=== PATIENT | male | born 1965 | race Caucasian/White ===

== ENCOUNTER 2024-07-07 23:56 | Inpatient (IN) ==
[2024-07-07] MEDS ORDERED: IOPAMIDOL 100 ML BOTTLE IV ONE (23:57)
[2024-07-08] MEDS: fentaNYL 100 MCG/2 ML VIAL IV PRN (01:01)
[2024-07-08] MEDS: 0.9 % SODIUM CHLORIDE 500 ML IV ONE (01:01)
[2024-07-08] MEDS: ONDANSETRON 4 MG/2 ML VIAL IV ONE ×2 (01:02→04:41)
[2024-07-08 01:13] LABS: Basophils # (Auto) 0.05 K/mcL (0.00-0.30); Basophils % (Auto) 0.4 % (0.0-2.0); Eosinophils # (Auto) 0.15 K/mcL (0.00-0.70); Eosinophils % (Auto) 1.3 % (0.0-7.0); Hematocrit 44.4 % (40.1-51.0); Hemoglobin 13.4 g/dL (13.7-17.5); Lymphocytes % (Auto) 15.9 % (15.5-49.0); Mean Cell Volume 71.3 fL (80.0-100.0); Mean Corpuscular HGB Conc 30.2 g/dL (31.0-36.0); Mean Platelet Volume 9.4 fL (8.8-12.5); Monocytes # (Auto) 0.83 K/mcL (0.10-0.90); Neutrophils % (Auto) 75.1 % (38.0-78.0); Platelet Count 291 K/mcL (140-440); RBC 6.23 M/mcL (4.63-6.08); Red Cell Distribution Width 18.2 % (11.5-14.5); WBC 11.9 K/mcL (4.5-11.0)
[2024-07-08 01:30] LABS: ALT/SGPT 20 U/L (<40); AST/SGOT 20 U/L (<40); Albumin 4.5 gm/dL (3.2-5.2); Albumin/Globulin Ratio 1.7 (1.0-2.3); Alkaline Phosphatase 70 U/L (39-117); Bilirubin,Total 0.6 mg/dL (0.1-1.0); Blood Urea Nitrogen 18 mg/dL (6-20); Calcium 9.9 mg/dL (8.6-10.4); Carbon Dioxide 25 mmol/L (22-30); Chloride 101 mmol/L (96-108); Globulin 2.7 gm/dL (2.2-3.7); Glomerular Filtration Rate 65; Glucose 120 mg/dL (70-105); Potassium 4.3 mmol/L (3.3-5.1); Sodium 140 mmol/L (133-145)
[2024-07-08] MEDS: HYDROmorphone 1 MG/ML SYRINGE IV PRN (02:05)
[2024-07-08] MEDS: METOCLOPRAMIDE 10 MG/2 ML VIAL IV ONE (03:40)
[2024-07-08] MEDS: BENZOCAINE ONE 20% 1 SPRAY TOPICAL (03:54)
[2024-07-08] MEDS: 0.9 % SODIUM CHLORIDE 1,000 ML IV SCH (04:04)
[2024-07-08] MEDS: ONDANSETRON 4 MG/2 ML VIAL IV PRN (07:35)
[2024-07-08] MEDS: BENZOCAINE ONE 20% 1 SPRAY TOPICAL PRN (11:29)
[2024-07-08] MEDS ORDERED: METOCLOPRAMIDE 10 MG/2 ML VIAL IV SCH (13:45)
[2024-07-08] MEDS: 0.9 % SODIUM CHLORIDE 10 ML SYRINGE IV SCH (14:02)
[2024-07-08] MEDS: PYRIDOSTIGMINE BROMIDE 10 MG/2 ML AMPUL IV SCH ×2 (14:02→14:07)
[2024-07-08] MEDS: PANTOPRAZOLE 40 MG VIAL IV SCH (17:15)
[2024-07-09] MEDS: LORazepam 2 MG/ML VIAL IV PRN (02:41)
[2024-07-09] MEDS: POLYETHYLENE GLYCOL 3350 17 GM PACKET PO SCH (16:03)
[2024-07-10 06:45] LABS: Basophils # (Auto) 0.04 K/mcL (0.00-0.30); Basophils % (Auto) 0.5 % (0.0-2.0); Eosinophils # (Auto) 0.17 K/mcL (0.00-0.70); Eosinophils % (Auto) 2.3 % (0.0-7.0); Hematocrit 36.7 % (40.1-51.0); Hemoglobin 11.1 g/dL (13.7-17.5); Lymphocytes # (Auto) 1.23 K/mcL (1.50-4.80); Lymphocytes % (Auto) 16.4 % (15.5-49.0); Mean Cell Volume 72.1 fL (80.0-100.0); Mean Corpuscular HGB Conc 30.2 g/dL (31.0-36.0); Mean Platelet Volume 9.3 fL (8.8-12.5); Monocytes # (Auto) 0.57 K/mcL (0.10-0.90); Monocytes % (Auto) 7.6 % (1.0-12.0); Neutrophils % (Auto) 72.4 % (38.0-78.0); Platelet Count 211 K/mcL (140-440); RBC 5.09 M/mcL (4.63-6.08); Red Cell Distribution Width 17.4 % (11.5-14.5); WBC 7.5 K/mcL (4.5-11.0)
[2024-07-10 06:47] LABS: ALT/SGPT 11 U/L (<40); AST/SGOT 15 U/L (<40); Albumin 3.6 gm/dL (3.2-5.2); Albumin/Globulin Ratio 1.6 (1.0-2.3); Alkaline Phosphatase 59 U/L (39-117); Bilirubin,Direct 0.3 mg/dL (<0.3); Bilirubin,Total 0.7 mg/dL (0.1-1.0); Blood Urea Nitrogen 10 mg/dL (6-20); Calcium 8.3 mg/dL (8.6-10.4); Carbon Dioxide 24 mmol/L (22-30); Chloride 106 mmol/L (96-108); Globulin 2.2 gm/dL (2.2-3.7); Glomerular Filtration Rate 93; Glucose 104 mg/dL (70-105); Lactate Dehydrogenase 149 U/L (135-225); Phosphorous 1.6 mg/dL (2.5-4.5); Potassium 3.8 mmol/L (3.3-5.1); Sodium 139 mmol/L (133-145); Triglycerides 96 mg/dL (<150); Uric Acid 3.7 mg/dL (2.5-8.0)
== END 2024-07-10 14:20 | disposition home or self-care (01) | DRG 390 ==
LOC: ED 23:56 → MEDSUR 07-08 07:43
PROVIDERS: ADMIT Family Medicine Adult Medicine; ATTEND Family Medicine Adult Medicine